=== PATIENT | female | born 1975 | race African-American/Black ===

== ENCOUNTER → 2017-10-31 | Outpatient (CLI) | payer OTHER | LOC: ULTRA 11:44 | DX: R60.0 Localized edema (principal) ==

== ENCOUNTER → 2019-09-22 | Outpatient (CLI) | payer OTHER | LOC: CAT 12:48 | DX: Z13.6 Encounter for screening for cardiovascular disorders (principal); E78.00 Pure hypercholesterolemia, unspecified; I25.10 Atherosclerotic heart disease of native coronary artery without angina pectoris ==